=== PATIENT | female | born 1990 | race Caucasian/White ===

== ENCOUNTER 2020-04-04 18:36 | Emergency (ER) | payer OTHER ==
[~2020-04-04] VITALS: Ht 160 cm; Wt 70.9 kg
[2020-04-04] MEDS ORDERED: OMEP-218 (18:49)
[2020-04-04] MEDS ORDERED: ISIB1TAB (18:49)
--- NOTE | 2020-04-04 19:29 | REP ---
INDICATION: trauma. COMPARISON: None. TECHNIQUE: Four views of the left elbow are obtained. FINDINGS: Four views of the left elbow demonstrate normal bones, joints, and soft tissues. No fracture or subluxation is seen. No opaque foreign body noted. No evidence of joint effusion. IMPRESSION: Negative left elbow series. <Electronically signed by Ata Li > 04/04/201924
[2020-04-04] MEDS ORDERED: LIDOCAINE W/EPINEPHRINE 1% 20ML VIAL SC ONE (20:30)
[2020-04-04 21:14] VITALS: BP 125/62
== END 2020-04-04 21:15 | disposition home or self-care (01) ==
LOC: M ED 18:36
DX: S51.012A Laceration without foreign body of left elbow, initial encounter (principal); W00.0XXA Fall on same level due to ice and snow, initial encounter; Y92.9 Unspecified place or not applicable; Y93.9 Activity, unspecified; Y99.9 Unspecified external cause status; Z88.0 Allergy status to penicillin

== ENCOUNTER → 2020-05-26 | Outpatient (REF) | payer OTHER ==
[~2020-05-26] MED LIST: ISIB1TAB; OMEP-218
[2020-05-27 10:33] LABS: BASO % 0.5 % (0.0-1.0); EOS % 0.3 % (0.0-3.0); HEMOGLOBIN 14.2 g/dl (12.0-15.5); LYMPH # 1.6 10^3/uL (1.5-5.0); LYMPH % 20.7 % (24.0-44.0); MEAN CORPUSCULAR HEMOGLOBIN 30.5 pg (27.0-33.0); MEAN CORPUSCULAR HGB CONC 31.6 g/dl (32.0-36.5); MEAN CORPUSCULAR VOLUME 96.6 fl (80.0-96.0); MONO # 0.8 10^3/uL (0.0-0.8); MONO % 10.8 % (2.0-8.0); NEUTROPHILS # 5.2 10^3/uL (1.5-8.5); NEUTROPHILS % 67.3 % (36.0-66.0); PLATELET COUNT, AUTOMATED 216 10^3/uL (150-450); RED BLOOD COUNT 4.66 10^6/uL (4.00-5.40); WHITE BLOOD COUNT 7.8 10^3/uL (4.0-10.0)
[2020-05-27 11:13] LABS: ALBUMIN 4.2 GM/DL (3.2-5.2); ALT/SGPT 23 U/L (12-78); BILIRUBIN,TOTAL 0.3 MG/DL (0.2-1.0); BLOOD UREA NITROGEN 15 MG/DL (7-18); CALCIUM LEVEL 9.7 MG/DL (8.5-10.1); CARBON DIOXIDE LEVEL 27 MEQ/L (21-32); CHLORIDE LEVEL 106 MEQ/L (98-107); CREATININE FOR GFR 0.87 MG/DL (0.55-1.30); FREE T4 1.19 NG/DL (0.76-1.46); GLOMERULAR FILTRATION RATE > 60.0 (>60); GLUCOSE, FASTING 94 MG/DL (70-100); RHEUMATOID FACTOR QUANT < 10.0 IU/ML (<15.0); SODIUM LEVEL 138 MEQ/L (136-145); TOTAL PROTEIN 7.3 GM/DL (6.4-8.2)
== END ==
LOC: M PLALAB 14:31
PROVIDERS: ATTEND Nurse Practitioner Family
DX: R52 Pain, unspecified (principal); R53.83 Other fatigue

== ENCOUNTER → 2020-07-17 | Outpatient (CLI) | payer OTHER ==
[~2020-07-17] MED LIST changes: +IBUP80TA
== END ==
LOC: M LABSMTC 10:27
PROVIDERS: ATTEND Anesthesiology
DX: Z01.818 Encounter for other preprocedural examination (principal); Z11.52 Encounter for screening for COVID-19

== ENCOUNTER 2020-07-21 11:28 | Day surgery (SDC) | payer OTHER ==
[~2020-07-21] VITALS: Ht 160 cm; Wt 69.9 kg
[2020-07-21] MEDS ORDERED: NS 1,000 ML IV ONE (12:10)
[2020-07-21] MEDS ORDERED: propofoL 200 MG/20 ML VIAL As Ordered ONE ×3 (13:26→13:53)
[2020-07-21] MEDS ORDERED: fentaNYL 100 MCG/2 ML INJECTION (J3010) As Ordered ONE (13:26)
--- NOTE | 2020-07-21 13:46 | ROOR ---
Patient Name: Isadora Mendiola Procedure Date: 07/21/2020 1:36 PM Date of : 1990 Age: 30 Room: [facility] Gender: Female Note Status: Finalized Procedure: Upper GI endoscopy Indications: Generalized abdominal pain, Heartburn Providers: Angus Reyes MD Referring MD: Janessa Benton Requesting Provider: Medicines: Monitored Anesthesia Care Complications: No immediate complications. Procedure: Pre-Anesthesia Assessment: - The heart rate, respiratory rate, oxygen saturations, blood pressure, adequacy of pulmonary ventilation, and response to care were monitored throughout the procedure. The Endoscope was introduced through the mouth, and advanced to the second part of duodenum. The upper GI endoscopy was accomplished without difficulty. The patient tolerated the procedure well. Findings: The esophagus was normal. The stomach was normal. The examined duodenum was normal. Impression: - Normal esophagus. - Normal stomach. - Normal examined duodenum. - No specimens collected. Recommendation: - Observe patient's clinical course. - Follow an antireflux regimen. - Continue present medications. Procedure Code(s): --- Professional --- 52586, Esophagogastroduodenoscopy, flexible, transoral; diagnostic, including collection of specimen(s) by brushing or washing, when performed (separate procedure) Diagnosis Code(s): --- Professional --- R12, Heartburn R10.84, Generalized abdominal pain CPT copyright 2019 [employer]. All rights reserved. The codes documented in this report are preliminary and upon travel services professional review may be revised to meet current compliance requirements. Angus Reyes MD Angus Reyes MD 07/21/2020 1:46:11 PM Electronically signed by Angus Reyes MD Number of Addenda: 0 Note Initiated On: 07/21/2020 1:36 PM Estimated Blood Loss: Estimated blood loss: none.
--- NOTE | 2020-07-21 14:02 | ROOR ---
Patient Name: Isadora Mendiola Procedure Date: 07/21/2020 1:37 PM Date of : 1990 Age: 30 Room: [facility] Gender: Female Note Status: Finalized Procedure: Colonoscopy Indications: Generalized abdominal pain, Behcets Providers: Angus Reyes MD Referring MD: Janessa Benton Requesting Provider: Medicines: Monitored Anesthesia Care Complications: No immediate complications. Procedure: Pre-Anesthesia Assessment: - The heart rate, respiratory rate, oxygen saturations, blood pressure, adequacy of pulmonary ventilation, and response to care were monitored throughout the procedure. The Colonoscope was introduced through the anus and advanced to 15 cm into the ileum. The colonoscopy was performed without difficulty. The patient tolerated the procedure well. The quality of the bowel preparation was good. Findings: The perianal and digital rectal examinations were normal. The terminal ileum appeared normal. The colon (entire examined portion) appeared normal. Small Internal Hemorrhoids. Impression: - The terminal ileum was normal. - The entire colon is normal. - No specimens collected. Recommendation: - Continue present medications. - Use fiber, for example Citrucel, Fibercon, Konsyl or Metamucil. Procedure Code(s): --- Professional --- 59598, Colonoscopy, flexible; diagnostic, including collection of specimen(s) by brushing or washing, when performed (separate procedure) Diagnosis Code(s): --- Professional --- R10.84, Generalized abdominal pain CPT copyright 2019 [employer]. All rights reserved. The codes documented in this report are preliminary and upon chair maker review may be revised to meet current compliance requirements. Angus Reyes MD Angus Reyes MD 07/21/2020 2:01:59 PM Electronically signed by Angus Reyes MD Number of Addenda: 0 Note Initiated On: 07/21/2020 1:37 PM Estimated Blood Loss: Estimated blood loss: none.
[2020-07-21 14:20] VITALS: BP 136/67
== END 2020-07-21 14:30 | disposition home or self-care (01) ==
LOC: M OPP 11:28
PROVIDERS: ATTEND Internal Medicine Gastroenterology
DX: R10.84 Generalized abdominal pain (principal); R12 Heartburn; K64.8 Other hemorrhoids; K21.9 Gastro-esophageal reflux disease without esophagitis; M35.2 Behcet's disease
CPT/HCPCS: 43235; 45378; J3010